=== PATIENT | male | born 1985 | race Caucasian/White ===

== ENCOUNTER 2025-07-09 11:03 | Emergency (ER) | payer MEDICAID ==
[~2025-07-09] VITALS: Ht 182.9 cm; Wt 93.9 kg
[2025-07-09] MEDS: ONDANSETRON HCL/PF 4 MG/2 ML VIAL IVP ONE (11:40)
[2025-07-09] MEDS: MECLIZINE HCL 25 MG TABLET PO ONE (11:40)
[2025-07-09] MEDS: IV NS 0.9% 1,000 ML BAG IV ONE (11:40)
[2025-07-09] MEDS ORDERED: MECL-159 PO (11:59)
[2025-07-09] MEDS ORDERED: ONDA4TAB5 PO (11:59)
[2025-07-09 12:18] VITALS: BP 138/89; TEMP 97.8; O2SAT 100
== END 2025-07-09 12:19 | disposition home or self-care (01) ==
LOC: ER 11:08
DX: R55 Syncope and collapse (principal); F17.200 Nicotine dependence, unspecified, uncomplicated
CPT/HCPCS: 82962-TC